=== PATIENT | male | born 1970 | race Caucasian/White ===

== ENCOUNTER 2023-09-20 09:29 | Day surgery (SDC) | payer OTHER ==
[~2023-09-20] VITALS: Ht 185.4 cm; Wt 84.8 kg
[2023-09-20] MEDS ORDERED: LIDOCAINE 2% 100 MG/5 ML UJET TP ONE (10:59)
[2023-09-20] MEDS ORDERED: fentaNYL citrate 0.05 MG/ML VIAL ONE (10:59)
[2023-09-20] MEDS ORDERED: fentaNYL citrate 0.05 MG/ML VIAL IVP ONE (12:15)
== END 2023-09-20 12:55 | disposition home or self-care (01) ==
LOC: MDS 09:29 → MMU 09:30 → MDS 12:55
PROVIDERS: ATTEND Internal Medicine Gastroenterology
DX: Z12.11 Encounter for screening for malignant neoplasm of colon (principal); I10 Essential (primary) hypertension; E11.9 Type 2 diabetes mellitus without complications; E78.00 Pure hypercholesterolemia, unspecified; Z79.84 Long term (current) use of oral hypoglycemic drugs; Z79.899 Other long term (current) drug therapy; Z89.611 Acquired absence of right leg above knee
CPT/HCPCS: 45378; 82948; J3010